=== PATIENT | male | born 1975 | race Caucasian/White ===

== ENCOUNTER 2018-03-18 18:35 | Inpatient (IN) ==
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
[2018-03-18] MEDS ORDERED: Morphine Inj 4 MG/ML Vial IV.PUSH ONE (19:43)
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
--- NOTE | 2018-03-18 20:04 | XR ---
EXAM DATE: 03/18/2018 7:58 PM EDT AGE/SEX: 42 years / Male INDICATIONS: Chest pain CLINICAL DATA: This is the patient's initial encounter. Patient reports that signs and symptoms have been present for 1 day and indicates a pain score of Nonresponsive. MEDICAL/SURGICAL HISTORY: Non-responsive. Non-responsive. COMPARISON: No prior exams available for comparison. FINDINGS: A single AP view of the chest demonstrates the lungs to be symmetrically aerated without evidence of mass, infiltrate or effusion. The cardiomediastinal contours are unremarkable. Osseous structures a re intact. CONCLUSION: No acute cardiopulmonary process. Electronically signed by: Salvatore Thomas MD 03/18/2018 8:02 PM EDT
[2018-03-18 20:24] LABS: Baso % (Auto) 0.4 % (0.0-2.0); Eos # (Auto) 0.3 th/mm3 (0.0-0.4); Eos % (Auto) 3.3 % (0.0-4.0); Hematocrit 38.2 % (39.0-51.0); Hemoglobin 12.8 gm/dL (13.0-17.0); Lymph # (Auto) 1.3 th/mm3 (1.0-4.8); Mean Corpuscular HGB Conc 33.4 % (32.0-36.0); Mean Corpuscular Hemoglobin 29.4 pg (27.0-34.0); Mean Platelet Volume 8.7 fL (7.0-11.0); Mono # (Auto) 0.7 th/mm3 (0.0-0.9); Mono % (Auto) 6.4 % (0.0-8.0); Neut % (Auto) 76.9 % (16.0-70.0); Platelet Count 317 th/mm3 (150-450); Red Blood Count 4.34 mil/mm3 (4.50-5.90); Red Cell Distribution Width 13.2 % (11.6-17.2); White Blood Count 10.4 th/mm3 (4.0-11.0)
[2018-03-18 20:59] LABS: Calcium 7.6 mg/dL (8.5-10.1)
[2018-03-18 21:03] LABS: Potassium 4.1 meq/L (3.5-5.1)
[2018-03-18] MEDS ORDERED: Post-op Orders (for Pharmacy) OTHER STA (21:28)
[2018-03-18] MEDS ORDERED: Morphine Inj 4 MG/ML Vial IV.PUSH PRN (21:28)
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
[2018-03-18] MEDS: Ketorolac Inj 30 MG/ML (IVP) Vial IV.PUSH SCH (22:40)
[2018-03-18] MEDS ORDERED: Chlorhexidine Gluconate 2% 1 Pack (2 Cloths) TOPICAL SCH (23:00)
[2018-03-18] MEDS ORDERED: Sodium Chlor 0.9% Inj 500 ML IV.SIG SCH (23:00)
[2018-03-19] MEDS: Ketorolac Inj 30 MG/ML (IVP) Vial IV.PUSH SCH ×2 (05:50→20:34)
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
[2018-03-19] MEDS ORDERED: Propofol Inj 500 MG/50 ML Vial ONE (07:14)
[2018-03-19] MEDS ORDERED: Bupivacaine/Dextrose 0.75% Inj 2 ML Ampul ONE (07:14)
[2018-03-19 07:47] LABS: Activated Partial Thrombo Time 27.2 sec (24.3-30.1); Prothrombin Time 10.2 sec (9.8-11.6)
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
[2018-03-19] MEDS ORDERED: Morphine Inj 4 MG/ML Vial IV.PUSH PRN (08:33)
[2018-03-19] MEDS ORDERED: Post-op Orders (for Pharmacy) OTHER STA (08:33)
--- NOTE | 2018-03-19 08:44 | P.OP ---
- Preoperative Diagnosis (1) Closed fracture of right distal tibia (2) Closed fracture of right distal fibula Date of procedure: 03/19/18 Procedure: Open reduction internal fixation right distal tibia fracture Anesthesia: GETA Surgeon: Ez Enamorado MD Design Coordinator: MARCIAL Simpson PA-C The surgical procedure was assisted by my physician manufacturing assistant. My P.A. presence was necessary throughout this case for the manipulation and positioning of the surgical extremity. My P.A. was assisting me throughout the duration of this procedure. The skill set of a physician manufacturing assistant was medically necessary to complete this procedure. During the surgical case the surgical scheduler was working at the back table and the physician manufacturing assistant was directly assisting me. Operation and Findings: Implants used: Biomet Plan of activity: Nonweightbearing Details of procedure: Patient was seen and evaluated preoperatively. He was found to have comminuted fractures of the right distal tibia and fibula. Informed consent was obtained for open reduction and internal fixation of distal tibia fracture versus possible external fixation. Soft tissue was evaluated preoperatively and found to be suitable for surgery. Patient was brought to the operating placed on operating room table. Patient was given IV sedation and general anesthesia. Timeout procedure was performed, and IV antibiotics were given prior to procedure. The operative leg was now prepped with alcohol followed by Hibiclens and draped usual sterile fashion. A 3 inch incision was now made over the medial aspect of the ankle. Saphenous vein was protected. A full thickness flap was now elevated. The distal medial tibia was now exposed. Attention was now turned towards reduction. The metaphyseal fragments were reduced first. Traction was applied and fracture fragments were manipulated. The fracture fragments were manipulated in excellent reduction was achieved. Fracture tenaculums were used to reduce fractures. Multiple K wires were used to hold provisional fixation. Fluoroscopy confirmed excellent alignment of fractures. 3.5 cortical lag screws were used to compress the main fracture fragments. A Biomet medial distal tibial plate was selected. Plate was placed percutaneously along the medial aspect of the distal tibia. Plate was provisionally held to bone with K wires. 2.7 cortical screws and 3.5 cortical screws were used to compress plate to bone. Multiple screws were placed into the shaft. Multiple 2.7 locking screws were placed into the distal segment. All screws were predrilled and premeasured for appropriate lengths. Final fluoroscopy revealed well aligned fracture with well-placed hardware. The syndesmosis was stressed and found to be stable. The wound was now thoroughly irrigated. Subcutaneous tissues closed with 3-0 Vicryl and skin was closed with 3-0 nylon. Sterile dressings were applied with Xeroform 4 x 4's soft roll and a well-padded splint. Needle and sponge counts were correct. Patient was transferred to recovery room in stable condition.
[2018-03-19] MEDS ORDERED: fentaNYL Citrate Inj 100 MCG/2 ML Ampul ONE ×2 (09:07)
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
[2018-03-19] MEDS: Calcium/Vitamin D 250/125 MG Tablet PO SCH ×3 (09:28→17:18)
[2018-03-19] MEDS: Senna/Docusate Sodium 8.6/50 MG Tablet PO SCH ×2 (09:28→20:33)
--- NOTE | 2018-03-19 11:06 | XR ---
EXAM DATE: 03/19/2018 10:45 AM EDT AGE/SEX: 42 years / Male INDICATIONS: Status post open rigid internal fixation of right ankle fracture.. CLINICAL DATA: This is the patient's initial encounter. Patient reports that signs and symptoms have been present for 1 day and indicates a pain score of Nonresponsive. MEDICAL/SURGICAL HISTORY: Non-responsive. Non-responsive. COMPARISON: [facility] [place], ANKLE LIMITED RIGHT 2V, 03/18/2018. . FINDINGS: Multiple coned-down views of the ankle were obtained using a matrix camera and demonstrate interval p lacement of a screw plate fixation device transfixing the comminuted distal tibial fracture. The frac ture fragments are now in near-anatomic alignment. Comminuted fracture of the distal fibula is visual ized as well is unchanged. CONCLUSION: Status post post open rigid internal fixation. Electronically signed by: Topher Larios MD 03/19/2018 11:03 AM EDT
[2018-03-19] MEDS ORDERED: Lidocaine PF 1% Inj 5 ML Syringe INFILTRATN ONE (12:00)
[2018-03-19] MEDS ORDERED: Phenylephrine/NS 1000 MCG/10ML Syringe IV.PUSH ONE (12:00)
[2018-03-19] MEDS ORDERED: Glycopyrrolate Inj 1 MG/5 ML Syringe IV.PUSH ONE (12:00)
[2018-03-19] MEDS ORDERED: Ketorolac Inj 30 MG/ML (IVP) Vial IV.PUSH ONE (12:00)
[2018-03-19] MEDS ORDERED: Succinylcholine Inj 100 MG/5 ML Syringe IV.PUSH ONE (12:00)
[2018-03-19] MEDS ORDERED: Neostigmine Inj 5 MG/5 ML Syringe IV.PUSH ONE (12:00)
[2018-03-19] MEDS: ceFAZolin 2 GM Premix Inj 2 GM/50 ML PIGGYBACK IV.SIG SCH (17:19)
[2018-03-19 20:18] LABS: Bacteria,Urine Rare /hpf; Bilirubin,Urine Negative (Negative); Clarity,Urine Hazy (Clear); Color,Urine Yellow (Yellw/Straw); Glucose,Urine (UA) 50 mg/dL (Negative); Hyaline Casts,Urine 1 /lpf (0-3); Leukocyte Esterase,Urine Negative (Negative); Mucus,Urine Few /lpf (Occasional); Nitrite,Urine Negative (Negative); Specific Gravity,Urine 1.027 (1.002-1.035); Squamous Epithelial Cell,Urine 1 /hpf (0-5); Urobilinogen,Urine 4 or Greater mg/dL (Less than 2)
[2018-03-19] MEDS: Vancomycin Inj 1,000 MG in Sodium Chlor 0.9% Inj 250 ML IV.SIG SCH (20:32)
[2018-03-20] MEDS: ceFAZolin 2 GM Premix Inj 2 GM/50 ML PIGGYBACK IV.SIG SCH ×3 (00:50→16:46)
--- NOTE | 2018-03-20 07:46 | P.PNOP ---
Subjective Interval history: Patient comfortable. Pain controlled. Physical Exam Vital signs: Vital Signs 03/19/18 09:00 03/19/18 09:15 03/19/18 09:20 Temperature 98.4 F Pulse Rate 75 75 Respiratory Rate 15 15 Blood Pressure 120/74 127/68 Pulse Oximetry 100 100 98 03/19/18 09:30 03/19/18 11:23 03/19/18 12:00 Temperature 97.8 F Pulse Rate 88 87 Respiratory Rate 19 16 Blood Pressure 116/63 119/68 Pulse Oximetry 100 99 03/19/18 12:16 03/19/18 13:26 03/19/18 17:18 Temperature Pulse Rate Respiratory Rate 16 18 Blood Pressure Pulse Oximetry 94 L 03/19/18 17:48 03/19/18 19:15 03/20/18 00:00 Temperature 97.7 F 98.2 F Pulse Rate 79 85 Respiratory Rate 18 18 18 Blood Pressure 157/80 H 165/83 H Pulse Oximetry 99 95 03/20/18 04:00 Temperature 97.9 F Pulse Rate 76 Respiratory Rate 18 Blood Pressure 156/72 H Pulse Oximetry 97 Intake & Output 03/19/18 03/20/18 03/20/18 18:59 06:59 18:59 Intake Total 1750 / 1750 Output Total 25 / 25 Balance 1725 / 1725 Weight 102.4 kg Intake: IV 1750 / 1750 LR 1000 mL Inj 1,000 ML @ 30 1700 / 1700 mls/hr IV.SIG .Q24H [place] Rx#: [id number] Ancef 2 GM Premix Inj 2 gm In 50 / 50 50 ml @ 100 mls/hr IV.SIG Q8H [place] Rx#:[id number] Output: Estimated Blood Loss 25 / 25 Other: # Voids 2 3 Date of Last Bowel Movement 03/17/18 RLE: dressing C/D/I splint intact no drainage noted calves soft good movement of toes +sensation Results - Labs CBC & Chem 7: 03/18/18 19:45 03/18/18 19:45 Laboratory Results - last 24 hr 03/19/18 03/19/18 06:29 20:01 PT 10.2 INR 1.0 APTT 27.2 Urine Color Yellow Urine Clarity Hazy H Urine pH 5.0 Ur Specific [place] 1.027 Urine Protein Negative Urine Glucose (UA) 50 Urine Ketones Negative Urine Occult Blood Negative Urine Nitrate Negative Urine Bilirubin Negative Urine Urobilinogen 4 or greater Ur Leukocyte Esterase Negative Urine RBC 1 Urine WBC 2 Ur Squamous Epith Cells 1 Urine Bacteria Rare H Hyaline Casts 1 Urine Mucus Few H - Imaging Impressions Ankle X-Ray 03/18/18 18:49 CONCLUSION: Comminuted oblique fractures of the distal tibia and fibular shaft. Chest X-Ray 03/18/18 19:35 CONCLUSION: No acute cardiopulmonary process. Ankle X-Ray 03/19/18 00:00 CONCLUSION: Status post post open rigid internal fixation. Assessment and Plan - Assessment and Plan 1) Right Distal Tib/Fib Fxs s/p ORIF - POD 1 -strict NWB -maintain splint at all times -elevate -plan for DC home Sat/Sun if patient doing well with therapy -DVT prophylaxis -scripts on chart -f/u with Nikita or MARIANA in 2 weeks
[2018-03-20] MEDS: Ketorolac Inj 30 MG/ML (IVP) Vial IV.PUSH SCH (08:05)
[2018-03-20] MEDS: Calcium/Vitamin D 250/125 MG Tablet PO SCH ×2 (08:06→12:28)
[2018-03-20] MEDS: Senna/Docusate Sodium 8.6/50 MG Tablet PO SCH (08:06)
[2018-03-20] MEDS: Vancomycin Inj 1,000 MG in Sodium Chlor 0.9% Inj 250 ML IV.SIG SCH (08:48)
== END 2018-03-20 16:07 | disposition home or self-care (01) ==
LOC: NEDA 18:35 → NEPC 18:35 → N06 22:24
PROVIDERS: ADMIT Orthopaedic Surgery Orthopaedic Trauma; ATTEND Orthopaedic Surgery Orthopaedic Trauma
DX: Y92.410 Unspecified street and highway as the place of occurrence of the external cause; S82.251A Displaced comminuted fracture of shaft of right tibia, initial encounter for closed fracture; V28.4XXA Motorcycle driver injured in noncollision transport accident in traffic accident, initial encounter; S82.451A Displaced comminuted fracture of shaft of right fibula, initial encounter for closed fracture